=== PATIENT | male | born 1985 | race Caucasian/White ===

== ENCOUNTER 2020-12-16 14:05 | Emergency (ER) | payer MEDICAID ==
[~2020-12-16] VITALS: Ht 160 cm; Wt 97.5 kg
[2020-12-16 14:10] VITALS: BP_SYST 129
[2020-12-16 14:38] VITALS: BP_SYST 129
== END 2020-12-16 14:38 ==
LOC: SED 14:05
DX: Z02.89 Encounter for other administrative examinations (principal); I10 Essential (primary) hypertension; E11.9 Type 2 diabetes mellitus without complications; Z91.013 Allergy to seafood
CPT/HCPCS: 99283